=== PATIENT | female | born 1990 | race Two or more races ===

== ENCOUNTER 2020-11-25 18:11 | Emergency (ER) | payer OTHER ==
[~2020-11-25] VITALS: Ht 142.2 cm; Wt 42.2 kg
[2020-11-25] MEDS ORDERED: BENADYL (19:09)
== END 2020-11-25 21:54 | disposition home or self-care (01) ==
LOC: ER 18:11
DX: L53.8 Other specified erythematous conditions (principal); R21 Rash and other nonspecific skin eruption; T78.40XA Allergy, unspecified, initial encounter; X58.XXXA Exposure to other specified factors, initial encounter